=== PATIENT | male | born 1965 | race Hispanic/Latino ===

== ENCOUNTER 2018-08-23 10:59 | Emergency (ER) | payer SELFPAY ==
[2018-08-23 12:50] LABS: Absolute Lymphocytes (CBC) 0.9 K/uL (0.7-4.9); Absolute Monocytes 0.7 K/uL (0.1-1.3); Absolute Neutrophil 3.2 K/uL (1.8-8.0); Basophils % 0.6 % (0-1.3); Eosinophils % 0.7 % (0-4.4); Hematocrit 44.9 % (39.6-49.0); Lymphocytes % 18.9 % (15.3-44.8); MPV 10.4 fL (7.6-11.3); Monocytes % 13.7 % (3.3-12.3); RBC Red Blood Cell Count 4.86 M/uL (4.33-5.43)
[2018-08-23 13:06] LABS: Albumin 3.8 g/dL (3.4-5.0); Bilirubin Direct 0.2 mg/dL (0-0.2); Bilirubin Total 0.6 mg/dL (0.2-1.0); Protein, Total 7.4 g/dL (6.4-8.2)
--- NOTE | 2018-08-23 14:43 | ER ---
Nurse's Notes [facility] Name: Farshad Ram Age: 53 yrs Sex: Male : 1965 Arrival Date: 08/23/2018 Time: 11:02 Bed 18 Private MD: Diagnosis: Diarrhea, unspecified Presentation: 08/23 11:14 Presenting complaint: Patient states: 3 days black stools, denies pain, denies iw vomiting, c/o loose stool, took pepto bismol yesterday. Transition of care: patient was not received from another setting of care. Onset of symptoms was August 20, 2018. Risk Assessment: Do you want to hurt yourself or someone else? Patient reports no desire to harm self or others. Initial Sepsis Screen: Does the patient meet any 2 criteria? No. Patient's initial sepsis screen is negative. Does the patient have a suspected source of infection? No. Patient's initial sepsis screen is negative. Care prior to arrival: None. 11:14 Method Of Arrival: Ambulatory iw 11:14 Acuity: ANNIKA 3 iw Historical: - Allergies: 11:16 No Known Allergies; iw - Home Meds: 11:16 None [Active]; iw - PMHx: 11:17 None; iw - PSHx: 11:17 None; iw - Immunization history:: Adult Immunizations not up to date. - Social history:: Smoking status: Patient/guardian denies using tobacco. - Ebola Screening: : Patient negative for fever greater than or equal to 101.5 degrees Fahrenheit, and additional compatible Ebola Virus Disease symptoms Patient denies exposure to infectious person Patient denies travel to an Ebola-affected area in the 21 days before illness onset No symptoms or risks identified at this time. Screenin:12 Abuse screen: Denies threats or abuse. Nutritional screening: No deficits noted. em Tuberculosis screening: No symptoms or risk factors identified. Fall Risk None identified. Assessment: 12:57 General: Appears in no apparent distress. comfortable, Behavior is calm, cooperative, em Denies fever. Pain: Denies pain. Neuro: Level of Consciousness is awake, alert, obeys commands, Oriented to person, place, time, situation. Cardiovascular: Capillary refill < 3 seconds Patient's skin is warm and dry. Respiratory: Airway is patent Respiratory effort is even, unlabored, Respiratory pattern is regular, symmetrical. GI: Abdomen is flat, Bowel sounds present X 4 quads. Abd is soft and non tender X 4 quads. Reports diarrhea, rectal bleeding, Patient currently denies nausea, vomiting. Derm: Skin is intact, is healthy with good turgor, Skin is pink, warm \T\ dry. Musculoskeletal: Range of motion: intact in all extremities. 13:10 Reassessment: Patient appears in no apparent distress at this time. I agree with above iw assessment by Jorge Alberto Hook LVN. 14:00 Reassessment: Patient appears in no apparent distress at this time. Patient and/or em family updated on plan of care and expected duration. Pain level reassessed. Patient is alert, oriented x 3, equal unlabored respirations, skin warm/dry/pink. 15:08 Reassessment: Patient appears in no apparent distress at this time. Patient and/or em family updated on plan of care and expected duration. Pain level reassessed. Patient is alert, oriented x 3, equal unlabored respirations, skin warm/dry/pink. Patient states feeling better. Vital Signs: 11:17 BP 124 / 87; Pulse 69; Resp 16; Temp 97.8; Pulse Ox 98% on R/A; Weight 81.65 kg; Height iw 5 ft. 9 in. (175.26 cm); Pain 0/10; 13:30 BP 121 / 77; Pulse 67; Resp 17; Pulse Ox 98% ; mh5 14:35 BP 123 / 70; Pulse 56; Resp 18; Pulse Ox 99% on R/A; Pain 0/10; em 11:17 Body Mass Index 26.58 (81.65 kg, 175.26 cm) iw ED Course: 11:02 Patient arrived in ED. mr 11:16 Triage completed. iw 11:17 Arm band placed on. iw 11:55 Phoenix Vickers, FERNY is PHCP. pm1 11:55 Jong Orosco MD is Attending Physician. pm1 12:01 Jorge Alberto Hook LVN is Primary Nurse. em 12:35 Initial lab(s) drawn, by me, sent to lab. T\T\S collected, blood band applied to patient. hj Inserted saline lock: 20 gauge in right antecubital area, using aseptic technique. Blood collected. 14:15 Urine collected: clean catch specimen, clear. mh5 14:16 Patient has correct armband on for positive identification. Placed in gown. Bed in low mh5 position. Call light in reach. Side rails up X 1. Warm blanket given. Pulse ox on. NIBP on. 15:06 No provider procedures requiring assistance completed. IV discontinued, intact, em bleeding controlled, No redness/swelling at site. Pressure dressing applied. Administered Medications: No medications were administered Outcome: 14:42 Discharge ordered by MD. pm1 15:06 Discharged to home ambulatory. em 15:06 Condition: good 15:06 Discharge instructions given to patient, Instructed on discharge instructions, follow up and referral plans. Demonstrated understanding of instructions, follow-up care. 15:13 Patient left the ED. em Signatures: Dinora Wood mr Hook, Jorge Alberto, BOOM PUMP OPERATOR BOOM PUMP OPERATOR em Tasneem Peters, RN RN iw Fransisco Mercado RN RN hj Phoenix Vickers, FERNY BANQUET KITCHEN SUPERVISOR pm1 Soraida Stapleton [facility] Corrections: (The following items were deleted from the chart) 11:17 11:14 Presenting complaint: Patient states: 3 days black stools, denies pain, denies iw vomiting, c/o loose stool iw
--- NOTE | 2018-08-23 14:43 | EDPHYS ---
Physician Documentation [facility] Name: Farshad Ram Age: 53 yrs Sex: Male : 1965 Arrival Date: 08/23/2018 Time: 11:02 Bed 18 Private MD: ED Physician Jong Orosco HPI: 08/23 13:00 This 53 yrs old Male presents to ER via Ambulatory with complaints of Diarrhea.pm1 13:00 The patient presents to the emergency department with diarrhea. Onset: The pm1 symptoms/episode began/occurred 3 day(s) ago. Possible causes: unknown. The symptoms are aggravated by nothing. The symptoms are alleviated by nothing. Associated signs and symptoms: Pertinent negatives: abdominal pain, dysuria, fever, nausea, vomiting. Severity of symptoms: Pain is currently a 0 / 10. The patient has not experienced similar symptoms in the past. The patient has not recently seen a physician. Patient with 3 days of diarrhea. Patient took Pepto-Bismol yesterday to try to slow down diarrhea and he noticed black stool this AM. concerned that he might have a GI bleed. Historical: - Allergies: 11:16 No Known Allergies; iw - Home Meds: 11:16 None [Active]; iw - PMHx: 11:17 None; iw - PSHx: 11:17 None; iw - Immunization history:: Adult Immunizations not up to date. - Social history:: Smoking status: Patient/guardian denies using tobacco. - Ebola Screening: : Patient negative for fever greater than or equal to 101.5 degrees Fahrenheit, and additional compatible Ebola Virus Disease symptoms Patient denies exposure to infectious person Patient denies travel to an Ebola-affected area in the 21 days before illness onset No symptoms or risks identified at this time. ROS: 13:00 Constitutional: Negative for fever, chills, and weight loss, Eyes: Negative for injury, pm1 pain, redness, and discharge, ENT: Negative for injury, pain, and discharge, Neck: Negative for injury, pain, and swelling, Cardiovascular: Negative for chest pain, palpitations, and edema, Respiratory: Negative for shortness of breath, cough, wheezing, and pleuritic chest pain. 13:00 Back: Negative for injury and pain, : Negative for injury, bleeding, discharge, and swelling, MS/Extremity: Negative for injury and deformity, Skin: Negative for injury, rash, and discoloration, Neuro: Negative for headache, weakness, numbness, tingling, and seizure. 13:00 Abdomen/GI: Positive for diarrhea, Negative for abdominal pain, nausea, vomiting. Exam: 13:00 Constitutional: This is a well developed, well nourished patient who is awake, alert, pm1 and in no acute distress. Head/Face: Normocephalic, atraumatic. Eyes: Pupils equal round and reactive to light, extra-ocular motions intact. Lids and lashes normal. Conjunctiva and sclera are non-icteric and not injected. Cornea within normal limits. Periorbital areas with no swelling, redness, or edema. ENT: Nares patent. No nasal discharge, no septal abnormalities noted. Tympanic membranes are normal and external auditory canals are clear. Oropharynx with no redness, swelling, or masses, exudates, or evidence of obstruction, uvula midline. Mucous membranes moist. Neck: Trachea midline, no thyromegaly or masses palpated, and no cervical lymphadenopathy. Supple, full range of motion without nuchal rigidity, or vertebral point tenderness. No Meningismus. Chest/axilla: Normal chest wall appearance and motion. Nontender with no deformity. No lesions are appreciated. Cardiovascular: Regular rate and rhythm with a normal S1 and S2. No gallops, murmurs, or rubs. Normal PMI, no JVD. No pulse deficits. Respiratory: Lungs have equal breath sounds bilaterally, clear to auscultation and percussion. No rales, rhonchi or wheezes noted. No increased work of breathing, no retractions or nasal flaring. 13:00 Back: No spinal tenderness. No costovertebral tenderness. Full range of motion. Skin: Warm, dry with normal turgor. Normal color with no rashes, no lesions, and no evidence of cellulitis. MS/ Extremity: Pulses equal, no cyanosis. Neurovascular intact. Full, normal range of motion. 13:00 Abdomen/GI: Inspection: abdomen appears normal, Bowel sounds: normal, Palpation: abdomen is soft and non-tender. 13:00 Neuro: Orientation: is normal, Motor: is normal, Sensation: is normal, no obvious gross deficits, Gait: is steady, at a normal pace, without difficulty. 14:00 Abdomen/GI: Rectal exam: Prostate: normal, rectal tone normal, Stool: guaiac negative, pm1 black, hemorrhoid(s), are not appreciated, mass, is not appreciated, without tenderness, swelling, is not appreciated, tenderness, is not appreciated, Jorge Alberto RN. Vital Signs: 11:17 BP 124 / 87; Pulse 69; Resp 16; Temp 97.8; Pulse Ox 98% on R/A; Weight 81.65 kg; Height iw 5 ft. 9 in. (175.26 cm); Pain 0/10; 13:30 BP 121 / 77; Pulse 67; Resp 17; Pulse Ox 98% ; mh5 14:35 BP 123 / 70; Pulse 56; Resp 18; Pulse Ox 99% on R/A; Pain 0/10; em 11:17 Body Mass Index 26.58 (81.65 kg, 175.26 cm) iw MDM: 11:55 Patient medically screened. pm1 14:41 Data reviewed: vital signs. Data interpreted: Pulse oximetry: on room air is 98 %. pm1 Interpretation: normal. Counseling: I had a detailed discussion with the patient and/or guardian regarding: the historical points, exam findings, and any diagnostic results supporting the discharge/admit diagnosis, lab results, the need for outpatient follow up, to return to the emergency department if symptoms worsen or persist or if there are any questions or concerns that arise at home. 08/23 12:00 Order name: Basic Metabolic Panel; Complete Time: 13:34 pm08/23 12:00 Order name: CBC with Diff; Complete Time: 13:34 pm08/23 12:00 Order name: Creatinine for Radiology; Complete Time: 13:34 pm08/23 12:00 Order name: Hepatic Function; Complete Time: 13:34 pm08/23 12:00 Order name: Lipase; Complete Time: 13:34 pm08/23 12:00 Order name: Type And Screen; Complete Time: 13:34 pm08/23 12:00 Order name: IV Saline Lock; Complete Time: 12:37 pm08/23 12:00 Order name: Labs collected and sent; Complete Time: 12:37 pm1 08/23 12:01 Order name: Urine Dipstick-Ancillary (obtain specimen); Complete Time: 14:15 pm08/23 13:26 Order name: ABO/RH no charge; Complete Time: 13:34 [facility] 08/23 14:16 Order name: Urine Dipstick--Ancillary (enter results) ag Administered Medications: No medications were administered Disposition: 08/24 07:01 Co-signature as Attending Physician, Jong Orosco MD I agree with the assessment and luis plan of care. Disposition: 08/23/18 14:42 Discharged to Home. Impression: Diarrhea, unspecified. - Condition is Stable. - Discharge Instructions: Food Choices to Help Relieve Diarrhea, Adult, Diarrhea, Adult, Viral Gastroenteritis, Adult. - Work release form, Medication Reconciliation Form, Thank You Letter, Antibiotic Education, Prescription Opioid Use form. - Follow up: Emergency Department; When: As needed; Reason: Worsening of condition. Follow up: Private Physician; When: 2 - 3 days; Reason: Recheck today's complaints, Continuance of care, Re-evaluation by your physician. - Problem is new. - Symptoms have improved. Signatures: Dispatcher [employer] [facility] Jong Orosco MD MD cha Munoz, Edgar, CARD CHECKER CARD CHECKER em Tasneem Peters, Phoenix Bush RN, FERNY LINES TENDER pm1 Corrections: (The following items were deleted from the chart) 08/23 15:13 14:42 08/23/2018 14:42 Discharged to Home. Impression: Diarrhea, unspecified. Condition em is Stable. Forms are Medication Reconciliation Form, Thank You Letter, Antibiotic Education, Prescription Opioid Use. Follow up: Emergency Department; When: As needed; Reason: Worsening of condition. Follow up: Private Physician; When: 2 - 3 days; Reason: Recheck today's complaints, Continuance of care, Re-evaluation by your physician. Problem is new. Symptoms have improved. pm1
[2018-08-23 15:30] LABS: Urine Blood 1+ (NEG); Urine Glucose NEGATIVE (NEG); Urine Protein NEGATIVE (NEG); Urine Specific Gravity 1.015 (1.005-1.030)
== END 2018-08-23 15:13 | disposition home or self-care (01) ==
LOC: ER 10:59
DX: R19.7 Diarrhea, unspecified (principal)
CPT/HCPCS: 36415; 80048; 80076; 81003; 83690; 85025; 86850; 86900; 86901; 99283